=== PATIENT | male | born 1990 | race Caucasian/White ===

== ENCOUNTER 2022-03-14 14:30 | Inpatient (IN) ==
[2022-03-14] MEDS: DilTIAZem 50 MG/50 ML IV.SOLN IVC SCH ×2 (17:02→22:21)
[2022-03-14] MEDS ORDERED: Ondansetron 4 MG/2 ML VIAL IVP PRN (17:29)
[2022-03-14] MEDS ORDERED: Acetaminophen 325 MG TABLET PO PRN (17:29)
[2022-03-14] MEDS ORDERED: Naloxone 0.4 MG/ML INJ IVP PRN (17:29)
[2022-03-14] MEDS ORDERED: MOM Conc 10 ML UD.LIQ PO PRN (17:29)
[2022-03-14] MEDS ORDERED: Mag Hydrox/Al Hydrox/Simeth 30 ML UDC PO PRN (17:29)
[2022-03-14] MEDS ORDERED: *HR* Heparin 5,000 UNIT/ML VIAL IVP ONE (17:31)
[2022-03-14] MEDS ORDERED: *HR* Heparin 5,000 UNIT/ML VIAL IVP PRN (17:31)
[2022-03-14] MEDS: Heparin 25,000UNIT/250ML 1/2NS 25,000 UNIT/250 ML IV.SOLN IVC SCH (18:47)
[2022-03-14 19:06] LABS: Calcium 8.8 mg/dL (8.6-10.3); Magnesium 1.9 mg/dL (1.6-2.6); Troponin I 0.04 ng/mL (< 0.04)
[2022-03-14 19:11] LABS: Thyroid Stimulating Hormone 1.608 mcIU/mL (0.340-5.600)
[2022-03-15] MEDS: DilTIAZem 50 MG/50 ML IV.SOLN IVC SCH ×5 (03:34→21:38)
[2022-03-15] MEDS: Heparin 25,000UNIT/250ML 1/2NS 25,000 UNIT/250 ML IV.SOLN IVC SCH ×3 (04:22→23:19)
[2022-03-15 05:28] LABS: Hematocrit 38.4 % (37.5-50.1); Hemoglobin 12.6 g/dL (12.9-16.9); Mean Corpuscular HGB Conc 32.8 g/dL (31.6-35.5); Mean Corpuscular Hemoglobin 29.3 pg (28.0-33.3); Mean Corpuscular Volume 89.3 fL (83.0-100.0); Platelet Count 269 K/mcL (140-400); Red Cell Distribution Width 13.2 % (11.5-14.5); White Blood Count 10.5 K/mcL (4.3-11.1)
[2022-03-15 05:41] LABS: INR 1.2; Prothrombin Time 13.9 Seconds (9.4-12.1)
[2022-03-15] MEDS ORDERED: *HR* Metoprolol 5 MG/5 ML VIAL IVP ONE (06:11)
[2022-03-15 06:57] LABS: BUN/Creatinine Ratio 16 (6-26); Blood Urea Nitrogen 15 mg/dL (6-20); Calcium 8.6 mg/dL (8.6-10.3); Carbon Dioxide 25 mEq/L (23-29); Chloride 102 mEq/L (98-107); Glucose 119 mg/dL (70-105); Magnesium 1.8 mg/dL (1.6-2.6); Osmolality,Calculated 282 (280-300); Sodium 135 mEq/L (136-145)
[2022-03-15] MEDS ORDERED: ARIPiprazole 5 MG TABLET PO SCH (09:00)
[2022-03-15] MEDS ORDERED: Metoprolol XL (24 HR) Succ 50 MG TAB.ER.24H PO SCH (09:00)
[2022-03-15] MEDS: methocarbamoL 500 MG TABLET PO SCH ×3 (09:22→20:09)
[2022-03-15] MEDS: Loratadine 10 MG TABLET PO SCH (09:22)
[2022-03-15] MEDS: lisinopriL 10 MG TABLET PO SCH (09:23)
[2022-03-15] MEDS: Furosemide 20 MG TABLET PO SCH (09:23)
[2022-03-15 10:34] LABS: Estimated Average Glucose 140 mg/dl; Hemoglobin A1C 6.5 %
[2022-03-15] MEDS ORDERED: 0.9 % Sodium Chloride 2,000 ML ONE (15:18)
[2022-03-15] MEDS ORDERED: Iopamidol - 370 200 ML INFUS..BTL ONE (15:18)
[2022-03-15] MEDS ORDERED: *HR* Midazolam HCl 2 MG/2 ML VIAL ONE (15:18)
[2022-03-15] MEDS ORDERED: *HR* FentaNYL (PF) 100 MCG/2 ML VIAL ONE (15:18)
[2022-03-15] MEDS ORDERED: *HR* Heparin 10,000 UNIT/10 ML VIAL ONE (15:18)
[2022-03-15] MEDS ORDERED: Heparin 1,000 UNITS/500 mL 500 ML ONE (15:18)
[2022-03-15] MEDS ORDERED: Nitroglycerin 1,000 MCG/5 ML VIAL IV ONE (15:19)
[2022-03-15] MEDS: *HR* Heparin 5,000 UNIT/ML VIAL IVP PRN (20:08)
[2022-03-15] MEDS: Furosemide 40 MG/4 ML VIAL IVP SCH (20:08)
[2022-03-15] MEDS: Metoprolol XL (24 HR) Succ 50 MG TAB.ER.24H PO SCH (20:09)
[2022-03-16] MEDS: DilTIAZem 50 MG/50 ML IV.SOLN IVC SCH (03:58)
[2022-03-16] MEDS ORDERED: Amiodarone Premix 360 MG/200 ML BAG IVC ONE (09:09)
[2022-03-16] MEDS ORDERED: Amiodarone Premix 150 MG/100 ML BAG IVPB ONE (09:11)
[2022-03-16] MEDS: Heparin 25,000UNIT/250ML 1/2NS 25,000 UNIT/250 ML IV.SOLN IVC SCH ×2 (09:13→14:59)
[2022-03-16] MEDS: lisinopriL 10 MG TABLET PO SCH (09:14)
[2022-03-16] MEDS: Metoprolol XL (24 HR) Succ 50 MG TAB.ER.24H PO SCH ×2 (09:15→19:50)
[2022-03-16] MEDS: Loratadine 10 MG TABLET PO SCH (09:15)
[2022-03-16] MEDS: methocarbamoL 500 MG TABLET PO SCH ×3 (09:15→19:50)
[2022-03-16] MEDS: Furosemide 40 MG/4 ML VIAL IVP SCH ×2 (09:16→19:49)
[2022-03-16] MEDS: Furosemide 20 MG TABLET PO SCH (09:17)
[2022-03-16 10:22] LABS: Basophils # 0.1 K/mcL (0.0-0.2); Basophils % 0.5 %; Eosinophils # 0.5 K/mcL (0.0-0.6); Eosinophils % 5.5 %; Hematocrit 41.4 % (37.5-50.1); Hemoglobin 13.8 g/dL (12.9-16.9); Immature Granulocytes % 0.9 % (0-4); Lymphocytes # 2.3 K/mcL (0.6-4.6); Lymphocytes % 24.4 %; Mean Corpuscular HGB Conc 33.3 g/dL (31.6-35.5); Mean Corpuscular Hemoglobin 29.5 pg (28.0-33.3); Mean Corpuscular Volume 88.5 fL (83.0-100.0); Mean Platelet Volume 9.5 fL (9.4-12.4); Monocytes # 0.7 K/mcL (0.0-1.3); Monocytes % 7.6 %; Neutrophils # 5.6 K/mcL (1.6-8.9); Platelet Count 309 K/mcL (140-400); Red Blood Count 4.68 M/mcL (4.19-5.50); Red Cell Distribution Width 13.2 % (11.5-14.5); Segmented Neutrophils % 61.1 %; White Blood Count 9.2 K/mcL (4.3-11.1)
[2022-03-16 10:43] LABS: BUN/Creatinine Ratio 14 (6-26); Blood Urea Nitrogen 14 mg/dL (6-20); Calcium 9.1 mg/dL (8.6-10.3); Carbon Dioxide 25 mEq/L (23-29); Chloride 100 mEq/L (98-107); Glucose 209 mg/dL (70-105); Osmolality,Calculated 285 (280-300); Potassium 3.8 mEq/L (3.5-5.1); Sodium 134 mEq/L (136-145)
[2022-03-16] MEDS: *HR* Heparin 5,000 UNIT/ML VIAL IVP PRN (10:44)
[2022-03-16] MEDS ORDERED: DilTIAZem CD (24hr) 120 MG CAP.ER.24H PO SCH (11:30)
[2022-03-16] MEDS: Amiodarone Premix 360 MG/200 ML BAG IVC SCH (15:25)
[2022-03-16] MEDS: *HR* Rivaroxaban 10 MG TABLET PO SCH (16:58)
[2022-03-16] MEDS ORDERED: polyethylene glycoL 3350 17 GM POWD.PACK PO PRN (18:58)
[2022-03-17] MEDS: Amiodarone Premix 360 MG/200 ML BAG IVC SCH (04:24)
[2022-03-17] MEDS: Loratadine 10 MG TABLET PO SCH (09:28)
[2022-03-17] MEDS: Metoprolol XL (24 HR) Succ 50 MG TAB.ER.24H PO SCH ×2 (09:28→20:02)
[2022-03-17] MEDS: methocarbamoL 500 MG TABLET PO SCH ×3 (09:28→20:02)
[2022-03-17] MEDS: Furosemide 40 MG/4 ML VIAL IVP SCH ×2 (09:28→20:02)
[2022-03-17] MEDS: lisinopriL 10 MG TABLET PO SCH (09:28)
[2022-03-17 09:37] LABS: Hematocrit 41.2 % (37.5-50.1); Hemoglobin 13.6 g/dL (12.9-16.9); Mean Corpuscular Hemoglobin 29.2 pg (28.0-33.3); Mean Corpuscular Volume 88.4 fL (83.0-100.0); Mean Platelet Volume 9.5 fL (9.4-12.4); Platelet Count 334 K/mcL (140-400); Red Blood Count 4.66 M/mcL (4.19-5.50); Red Cell Distribution Width 13.2 % (11.5-14.5); White Blood Count 9.8 K/mcL (4.3-11.1)
[2022-03-17 09:57] LABS: BUN/Creatinine Ratio 15 (6-26); Blood Urea Nitrogen 15 mg/dL (6-20); Calcium 9.3 mg/dL (8.6-10.3); Carbon Dioxide 28 mEq/L (23-29); Chloride 100 mEq/L (98-107); Glucose 180 mg/dL (70-105); Osmolality,Calculated 285 (280-300); Sodium 135 mEq/L (136-145)
[2022-03-17] MEDS ORDERED: Metoprolol XL (24 HR) Succ 25 MG TAB.ER.24H PO ONE (11:51)
[2022-03-17] MEDS: *HR* Metoprolol 5 MG/5 ML VIAL IVP PRN ×2 (12:47→18:39)
[2022-03-17] MEDS: *HR* Digoxin 0.5 MG/2 ML AMPUL IVP SCH ×2 (12:47→18:17)
[2022-03-17] MEDS: *HR* Rivaroxaban 10 MG TABLET PO SCH (15:55)
[2022-03-18 04:53] LABS: Hemoglobin 14.2 g/dL (12.9-16.9); Mean Corpuscular HGB Conc 33.8 g/dL (31.6-35.5); Mean Corpuscular Volume 88.6 fL (83.0-100.0); Mean Platelet Volume 9.4 fL (9.4-12.4); Platelet Count 340 K/mcL (140-400); Red Blood Count 4.74 M/mcL (4.19-5.50); Red Cell Distribution Width 13.2 % (11.5-14.5); White Blood Count 12.1 K/mcL (4.3-11.1)
[2022-03-18 05:06] LABS: BUN/Creatinine Ratio 18 (6-26); Blood Urea Nitrogen 17 mg/dL (6-20); Calcium 9.2 mg/dL (8.6-10.3); Carbon Dioxide 29 mEq/L (23-29); Chloride 99 mEq/L (98-107); Glucose 129 mg/dL (70-105); Osmolality,Calculated 281 (280-300); Potassium 4.2 mEq/L (3.5-5.1); Sodium 134 mEq/L (136-145)
[2022-03-18] MEDS: Furosemide 40 MG/4 ML VIAL IVP SCH ×2 (07:45→19:58)
[2022-03-18] MEDS: Metoprolol XL (24 HR) Succ 50 MG TAB.ER.24H PO SCH ×2 (07:45→19:57)
[2022-03-18] MEDS: methocarbamoL 500 MG TABLET PO SCH ×3 (07:46→19:57)
[2022-03-18] MEDS: Loratadine 10 MG TABLET PO SCH (07:46)
[2022-03-18] MEDS: lisinopriL 10 MG TABLET PO SCH (07:46)
[2022-03-18] MEDS ORDERED: *HR* Digoxin 0.125 MG TABLET PO SCH (09:00)
[2022-03-18] MEDS ORDERED: *HR* Digoxin 0.125 MG TABLET PO ONE (10:20)
[2022-03-18] MEDS: *HR* Metoprolol 5 MG/5 ML VIAL IVP PRN (15:03)
[2022-03-18] MEDS: *HR* Rivaroxaban 10 MG TABLET PO SCH (18:14)
[2022-03-19 09:57] LABS: Hematocrit 43.6 % (37.5-50.1); Hemoglobin 14.8 g/dL (12.9-16.9); Mean Corpuscular HGB Conc 33.9 g/dL (31.6-35.5); Mean Corpuscular Hemoglobin 29.7 pg (28.0-33.3); Mean Corpuscular Volume 87.6 fL (83.0-100.0); Mean Platelet Volume 9.3 fL (9.4-12.4); Platelet Count 353 K/mcL (140-400); Red Blood Count 4.98 M/mcL (4.19-5.50); White Blood Count 11.1 K/mcL (4.3-11.1)
[2022-03-19 10:17] LABS: BUN/Creatinine Ratio 25 (6-26); Blood Urea Nitrogen 23 mg/dL (6-20); Calcium 9.6 mg/dL (8.6-10.3); Carbon Dioxide 27 mEq/L (23-29); Chloride 98 mEq/L (98-107); Glucose 174 mg/dL (70-105); Osmolality,Calculated 282 (280-300); Potassium 4.2 mEq/L (3.5-5.1); Sodium 132 mEq/L (136-145)
[2022-03-19] MEDS: *HR* Digoxin 0.125 MG TABLET PO SCH (10:41)
[2022-03-19] MEDS: lisinopriL 10 MG TABLET PO SCH (10:41)
[2022-03-19] MEDS: Loratadine 10 MG TABLET PO SCH (10:41)
[2022-03-19] MEDS: methocarbamoL 500 MG TABLET PO SCH ×3 (10:41→20:52)
[2022-03-19] MEDS: Metoprolol XL (24 HR) Succ 50 MG TAB.ER.24H PO SCH ×2 (10:42→20:52)
[2022-03-19] MEDS: Furosemide 40 MG/4 ML VIAL IVP SCH ×2 (10:43→20:51)
[2022-03-19] MEDS: *HR* Metoprolol 5 MG/5 ML VIAL IVP PRN ×3 (11:27→20:52)
[2022-03-19] MEDS ORDERED: Metoprolol XL (24 HR) Succ 25 MG TAB.ER.24H PO ONE (14:13)
[2022-03-19] MEDS: *HR* Rivaroxaban 10 MG TABLET PO SCH (15:39)
[2022-03-19] MEDS ORDERED: Amiodarone Premix 150 MG/100 ML BAG IVPB ONE (21:08)
[2022-03-19] MEDS ORDERED: Amiodarone Premix 360 MG/200 ML BAG IVC ONE (22:00)
[2022-03-19] MEDS: IVABRADINE HCL 7.5 MG TABLET PO SCH (22:17)
[2022-03-19] MEDS: Amiodarone Premix 360 MG/200 ML BAG IVC SCH (22:41)
[2022-03-20] MEDS: Amiodarone Premix 360 MG/200 ML BAG IVC SCH ×4 (04:29→19:57)
[2022-03-20 05:22] LABS: Hematocrit 42.2 % (37.5-50.1); Hemoglobin 14.1 g/dL (12.9-16.9); Mean Corpuscular HGB Conc 33.4 g/dL (31.6-35.5); Mean Corpuscular Hemoglobin 29.6 pg (28.0-33.3); Mean Corpuscular Volume 88.5 fL (83.0-100.0); Mean Platelet Volume 9.4 fL (9.4-12.4); Platelet Count 352 K/mcL (140-400); Red Blood Count 4.77 M/mcL (4.19-5.50); White Blood Count 12.6 K/mcL (4.3-11.1)
[2022-03-20 05:42] LABS: BUN/Creatinine Ratio 25 (6-26); Blood Urea Nitrogen 26 mg/dL (6-20); Calcium 9.3 mg/dL (8.6-10.3); Carbon Dioxide 31 mEq/L (23-29); Chloride 96 mEq/L (98-107); Glucose 125 mg/dL (70-105); Osmolality,Calculated 286 (280-300); Potassium 4.7 mEq/L (3.5-5.1); Sodium 135 mEq/L (136-145)
[2022-03-20] MEDS: lisinopriL 10 MG TABLET PO SCH (08:58)
[2022-03-20] MEDS: Furosemide 40 MG/4 ML VIAL IVP SCH ×2 (08:58→19:57)
[2022-03-20] MEDS: Metoprolol XL (24 HR) Succ 50 MG TAB.ER.24H PO SCH ×2 (08:58→19:57)
[2022-03-20] MEDS: *HR* Digoxin 0.125 MG TABLET PO SCH (08:59)
[2022-03-20] MEDS: methocarbamoL 500 MG TABLET PO SCH ×3 (08:59→19:57)
[2022-03-20] MEDS: Loratadine 10 MG TABLET PO SCH (08:59)
[2022-03-20] MEDS: IVABRADINE HCL 7.5 MG TABLET PO SCH (10:10)
[2022-03-20] MEDS: *HR* Rivaroxaban 10 MG TABLET PO SCH (16:12)
[2022-03-20] MEDS: *HR* Amiodarone 200 MG TABLET PO SCH (19:57)
[2022-03-21] MEDS: Amiodarone Premix 360 MG/200 ML BAG IVC SCH (05:06)
[2022-03-21 05:54] LABS: Hematocrit 40.4 % (37.5-50.1); Hemoglobin 13.8 g/dL (12.9-16.9); Mean Corpuscular HGB Conc 34.2 g/dL (31.6-35.5); Mean Corpuscular Hemoglobin 29.7 pg (28.0-33.3); Mean Corpuscular Volume 87.1 fL (83.0-100.0); Mean Platelet Volume 9.2 fL (9.4-12.4); Platelet Count 321 K/mcL (140-400); Red Blood Count 4.64 M/mcL (4.19-5.50); Red Cell Distribution Width 12.9 % (11.5-14.5); White Blood Count 11.6 K/mcL (4.3-11.1)
[2022-03-21 06:22] LABS: BUN/Creatinine Ratio 27 (6-26); Blood Urea Nitrogen 30 mg/dL (6-20); Calcium 9.1 mg/dL (8.6-10.3); Carbon Dioxide 31 mEq/L (23-29); Chloride 98 mEq/L (98-107); Digoxin 1.1 ng/mL (0.8-2.0); Glucose 119 mg/dL (70-105); Magnesium 2.1 mg/dL (1.6-2.6); Osmolality,Calculated 289 (280-300); Phosphorous 4.4 mg/dL (2.7-4.5); Potassium 4.4 mEq/L (3.5-5.1); Sodium 136 mEq/L (136-145)
[2022-03-21] MEDS: Metoprolol XL (24 HR) Succ 50 MG TAB.ER.24H PO SCH ×2 (07:29→19:35)
[2022-03-21] MEDS: *HR* Digoxin 0.125 MG TABLET PO SCH (07:29)
[2022-03-21] MEDS: lisinopriL 10 MG TABLET PO SCH (07:30)
[2022-03-21] MEDS: methocarbamoL 500 MG TABLET PO SCH ×3 (07:30→19:35)
[2022-03-21] MEDS: Loratadine 10 MG TABLET PO SCH (07:30)
[2022-03-21] MEDS: *HR* Amiodarone 200 MG TABLET PO SCH ×2 (07:30→19:35)
[2022-03-21] MEDS: Furosemide 40 MG/4 ML VIAL IVP SCH (07:33)
[2022-03-21] MEDS: *HR* Metoprolol 5 MG/5 ML VIAL IVP PRN (11:03)
[2022-03-21] MEDS ORDERED: 0.9 % Sodium Chloride 500 ML IVC ONE ×2 (13:49→14:33)
[2022-03-21] MEDS: *HR* Rivaroxaban 10 MG TABLET PO SCH (17:03)
[2022-03-22] MEDS ORDERED: *HR* LORazepam 2 MG/ML VIAL IVP PRN (02:38)
[2022-03-22 06:25] LABS: Hematocrit 39.3 % (37.5-50.1); Hemoglobin 13.1 g/dL (12.9-16.9); Mean Corpuscular HGB Conc 33.3 g/dL (31.6-35.5); Mean Corpuscular Hemoglobin 29.3 pg (28.0-33.3); Mean Corpuscular Volume 87.9 fL (83.0-100.0); Mean Platelet Volume 9.4 fL (9.4-12.4); Platelet Count 306 K/mcL (140-400); Red Blood Count 4.47 M/mcL (4.19-5.50); Red Cell Distribution Width 12.9 % (11.5-14.5); White Blood Count 9.6 K/mcL (4.3-11.1)
[2022-03-22] MEDS: Metoprolol XL (24 HR) Succ 50 MG TAB.ER.24H PO SCH ×2 (07:33→21:27)
[2022-03-22] MEDS: Loratadine 10 MG TABLET PO SCH (07:34)
[2022-03-22] MEDS: *HR* Digoxin 0.125 MG TABLET PO SCH (07:34)
[2022-03-22] MEDS: methocarbamoL 500 MG TABLET PO SCH ×3 (07:34→21:27)
[2022-03-22] MEDS: *HR* Amiodarone 200 MG TABLET PO SCH ×2 (07:34→21:27)
[2022-03-22] MEDS: lisinopriL 10 MG TABLET PO SCH (07:54)
[2022-03-22] MEDS: Furosemide 40 MG TABLET PO SCH (08:35)
[2022-03-22 08:52] LABS: BUN/Creatinine Ratio 26 (6-26); Blood Urea Nitrogen 28 mg/dL (6-20); Carbon Dioxide 30 mEq/L (23-29); Chloride 98 mEq/L (98-107); Glucose 123 mg/dL (70-105); Osmolality,Calculated 287 (280-300); Potassium 4.2 mEq/L (3.5-5.1); Sodium 135 mEq/L (136-145)
[2022-03-22 10:45] LABS: Magnesium 2.1 mg/dL (1.6-2.6); Phosphorous 3.8 mg/dL (2.7-4.5)
[2022-03-22] MEDS: *HR* Rivaroxaban 10 MG TABLET PO SCH (16:50)
[2022-03-22 17:16] LABS: Digoxin 0.8 ng/mL (0.8-2.0)
[2022-03-23 03:33] LABS: Hematocrit 38.5 % (37.5-50.1); Hemoglobin 12.9 g/dL (12.9-16.9); Mean Corpuscular HGB Conc 33.5 g/dL (31.6-35.5); Mean Corpuscular Hemoglobin 29.4 pg (28.0-33.3); Mean Corpuscular Volume 87.7 fL (83.0-100.0); Mean Platelet Volume 9.6 fL (9.4-12.4); Platelet Count 304 K/mcL (140-400); Red Blood Count 4.39 M/mcL (4.19-5.50); Red Cell Distribution Width 12.8 % (11.5-14.5); White Blood Count 10.3 K/mcL (4.3-11.1)
[2022-03-23 03:39] LABS: BUN/Creatinine Ratio 23 (6-26); Blood Urea Nitrogen 23 mg/dL (6-20); Calcium 8.7 mg/dL (8.6-10.3); Carbon Dioxide 31 mEq/L (23-29); Chloride 102 mEq/L (98-107); Glucose 103 mg/dL (70-105); Osmolality,Calculated 288 (280-300); Potassium 4.2 mEq/L (3.5-5.1); Sodium 137 mEq/L (136-145)
[2022-03-23] MEDS: Metoprolol XL (24 HR) Succ 50 MG TAB.ER.24H PO SCH ×2 (08:20→20:18)
[2022-03-23] MEDS: lisinopriL 10 MG TABLET PO SCH (08:25)
[2022-03-23] MEDS: Loratadine 10 MG TABLET PO SCH (08:25)
[2022-03-23] MEDS: *HR* Amiodarone 200 MG TABLET PO SCH ×2 (08:25→20:19)
[2022-03-23] MEDS: Furosemide 40 MG TABLET PO SCH (08:25)
[2022-03-23] MEDS: methocarbamoL 500 MG TABLET PO SCH ×3 (08:26→20:18)
[2022-03-23] MEDS: *HR* Digoxin 0.125 MG TABLET PO SCH (08:26)
[2022-03-23] MEDS: *HR* Metoprolol 5 MG/5 ML VIAL IVP PRN ×2 (11:01→17:13)
[2022-03-23] MEDS: *HR* Rivaroxaban 10 MG TABLET PO SCH (17:11)
[2022-03-23 22:49] VITALS: TEMP 97.9
[2022-03-24 05:18] LABS: Hematocrit 37.3 % (37.5-50.1); Hemoglobin 12.4 g/dL (12.9-16.9); Mean Corpuscular HGB Conc 33.2 g/dL (31.6-35.5); Mean Corpuscular Hemoglobin 29.4 pg (28.0-33.3); Mean Corpuscular Volume 88.4 fL (83.0-100.0); Mean Platelet Volume 9.6 fL (9.4-12.4); Platelet Count 270 K/mcL (140-400); Red Blood Count 4.22 M/mcL (4.19-5.50); Red Cell Distribution Width 12.8 % (11.5-14.5); White Blood Count 9.6 K/mcL (4.3-11.1)
[2022-03-24 05:36] LABS: BUN/Creatinine Ratio 23 (6-26); Blood Urea Nitrogen 23 mg/dL (6-20); Calcium 9.1 mg/dL (8.6-10.3); Carbon Dioxide 27 mEq/L (23-29); Chloride 102 mEq/L (98-107); Glucose 100 mg/dL (70-105); Osmolality,Calculated 286 (280-300); Potassium 4.1 mEq/L (3.5-5.1); Sodium 136 mEq/L (136-145)
[2022-03-24] MEDS: Furosemide 40 MG TABLET PO SCH (10:12)
[2022-03-24] MEDS: Metoprolol XL (24 HR) Succ 50 MG TAB.ER.24H PO SCH (10:12)
[2022-03-24] MEDS: *HR* Digoxin 0.125 MG TABLET PO SCH (10:12)
[2022-03-24] MEDS: methocarbamoL 500 MG TABLET PO SCH (10:12)
[2022-03-24] MEDS: *HR* Amiodarone 200 MG TABLET PO SCH (10:12)
[2022-03-24] MEDS: lisinopriL 10 MG TABLET PO SCH (10:12)
[2022-03-24] MEDS: Loratadine 10 MG TABLET PO SCH (10:12)
[2022-03-24 10:14] VITALS: BP 111/74; PULSE 110; O2SAT 96
== END 2022-03-24 12:30 | disposition home or self-care (01) | DRG 281 ==
LOC: 2NENU → 2NNU 03-19 22:49 → 3NENU 03-22 19:42
PROVIDERS: ADMIT Internal Medicine; ATTEND Internal Medicine

== ENCOUNTER 2022-04-09 11:35 | Observation (INO) ==
[2022-04-09 12:45] LABS: Basophils % 0.3 %; Eosinophils # 0.1 K/mcL (0.0-0.6); Eosinophils % 1.2 %; Hematocrit 41.4 % (37.5-50.1); Hemoglobin 13.9 g/dL (12.9-16.9); Immature Granulocytes % 0.4 % (0-4); Lymphocytes # 1.1 K/mcL (0.6-4.6); Mean Corpuscular HGB Conc 33.6 g/dL (31.6-35.5); Mean Corpuscular Hemoglobin 29.8 pg (28.0-33.3); Mean Corpuscular Volume 88.7 fL (83.0-100.0); Mean Platelet Volume 9.4 fL (9.4-12.4); Neutrophils # 8.8 K/mcL (1.6-8.9); Platelet Count 287 K/mcL (140-400); Red Blood Count 4.67 M/mcL (4.19-5.50); Red Cell Distribution Width 13.7 % (11.5-14.5); Segmented Neutrophils % 79.1 %; White Blood Count 11.1 K/mcL (4.3-11.1)
[2022-04-09 12:53] LABS: INR 1.5; Prothrombin Time 16.8 Seconds (9.4-12.1)
[2022-04-09 13:12] LABS: Activated Partial Thrombo Time 43.2 Seconds (26.0-36.0); D-Dimer < 215 ng/mLFEU (0-500)
[2022-04-09 13:41] LABS: Calcium 9.8 mg/dL (8.6-10.3); Potassium 4.2 mEq/L (3.5-5.1); Troponin I 0.03 ng/mL (< 0.04)
[2022-04-09] MEDS ORDERED: Naloxone 0.4 MG/ML INJ IVP PRN (14:39)
[2022-04-09] MEDS ORDERED: Ondansetron ODT 4 MG TAB.RAPDIS SL PRN (14:39)
[2022-04-09] MEDS ORDERED: Mag Hydrox/Al Hydrox/Simeth 30 ML UDC PO PRN (14:39)
[2022-04-09] MEDS ORDERED: Melatonin 3 MG TABLET PO PRN (14:39)
[2022-04-09] MEDS ORDERED: MOM Conc 10 ML UD.LIQ PO PRN (14:39)
[2022-04-09] MEDS ORDERED: *HR* Heparin 5,000 UNIT/ML VIAL IVP PRN ×2 (14:41)
[2022-04-09] MEDS ORDERED: *HR* Heparin 5,000 UNIT/ML VIAL IVP ONE (14:41)
[2022-04-09] MEDS: DilTIAZem 50 MG/50 ML IV.SOLN IVC SCH ×2 (14:45→20:09)
[2022-04-09] MEDS ORDERED: Heparin 25,000UNIT/250ML 1/2NS 25,000 UNIT/250 ML IV.SOLN IVC SCH (14:45)
[2022-04-09] MEDS: *HR* Amiodarone 200 MG TABLET PO SCH ×2 (15:14→20:04)
[2022-04-09] MEDS: Metoprolol XL (24 HR) Succ 50 MG TAB.ER.24H PO SCH ×2 (15:14→20:04)
[2022-04-09] MEDS: Heparin 25,000UNIT/250ML 1/2NS 25,000 UNIT/250 ML IV.SOLN IVC SCH (15:43)
[2022-04-09] MEDS: *HR* Digoxin 0.125 MG TABLET PO SCH (16:55)
[2022-04-09] MEDS ORDERED: Ibuprofen 600 MG TABLET PO PRN (17:00)
[2022-04-09] MEDS ORDERED: Acetaminophen 325 MG TABLET PO PRN (17:00)
[2022-04-09 17:31] LABS: INR 1.7; Prothrombin Time 18.8 Seconds (9.4-12.1)
[2022-04-09 18:06] LABS: Activated Partial Thrombo Time 159.2 Seconds (26.0-36.0)
[2022-04-09 18:08] LABS: Heparin anti-factor XA UFH 1.23 IU/mL (0.30-0.70)
[2022-04-09 19:57] LABS: Hematocrit 38.5 % (37.5-50.1); Hemoglobin 12.8 g/dL (12.9-16.9); Mean Corpuscular HGB Conc 33.2 g/dL (31.6-35.5); Mean Corpuscular Hemoglobin 29.2 pg (28.0-33.3); Mean Corpuscular Volume 87.7 fL (83.0-100.0); Mean Platelet Volume 9.5 fL (9.4-12.4); Platelet Count 242 K/mcL (140-400); Red Blood Count 4.39 M/mcL (4.19-5.50); Red Cell Distribution Width 13.5 % (11.5-14.5); White Blood Count 9.2 K/mcL (4.3-11.1)
[2022-04-10] MEDS: Heparin 25,000UNIT/250ML 1/2NS 25,000 UNIT/250 ML IV.SOLN IVC SCH (02:39)
[2022-04-10 03:11] LABS: Basophils % 0.5 %; Eosinophils # 0.1 K/mcL (0.0-0.6); Hematocrit 38.8 % (37.5-50.1); Hemoglobin 12.6 g/dL (12.9-16.9); Immature Granulocytes % 0.3 % (0-4); Lymphocytes # 2.4 K/mcL (0.6-4.6); Mean Corpuscular HGB Conc 32.5 g/dL (31.6-35.5); Mean Corpuscular Volume 89.4 fL (83.0-100.0); Mean Platelet Volume 9.7 fL (9.4-12.4); Monocytes # 1.5 K/mcL (0.0-1.3); Neutrophils # 3.9 K/mcL (1.6-8.9); Platelet Count 225 K/mcL (140-400); Red Blood Count 4.34 M/mcL (4.19-5.50); Red Cell Distribution Width 13.6 % (11.5-14.5); Segmented Neutrophils % 49.2 %; White Blood Count 7.9 K/mcL (4.3-11.1)
[2022-04-10 03:32] LABS: Alanine Aminotransferase 36 Units/L (7-52); Albumin 4.1 g/dL (3.5-5.7); Albumin/Globulin Ratio 1.2 (1.1-2.2); Alkaline Phosphatase 112 Units/L (34-104); Aspartate Amino Transferase 25 Units/L (13-39); BUN/Creatinine Ratio 14 (6-26); Bilirubin,Direct 0.4 mg/dL (0.0-0.2); Bilirubin,Indirect 0.9 mg/dL (0.0-1.0); Bilirubin,Total 1.3 mg/dL (0.3-1.0); Blood Urea Nitrogen 15 mg/dL (6-20); Calcium 9.2 mg/dL (8.6-10.3); Carbon Dioxide 26 mEq/L (23-29); Chloride 100 mEq/L (98-107); Globulin 3.3 g/dL (2.4-3.5); Glucose 92 mg/dL (70-105); Osmolality,Calculated 282 (280-300); Potassium 3.3 mEq/L (3.5-5.1); Sodium 136 mEq/L (136-145); Total Protein 7.4 g/dL (6.4-8.9)
[2022-04-10 09:05] LABS: Thyroid Stimulating Hormone 2.295 mcIU/mL (0.340-5.600)
[2022-04-10] MEDS: *HR* Digoxin 0.125 MG TABLET PO SCH (09:29)
[2022-04-10] MEDS: *HR* Amiodarone 200 MG TABLET PO SCH (09:30)
[2022-04-10] MEDS: Metoprolol XL (24 HR) Succ 50 MG TAB.ER.24H PO SCH (09:30)
[2022-04-10 09:33] VITALS: BP 117/64; PULSE 87; TEMP 97.6; O2SAT 98
== END 2022-04-10 16:14 | disposition home or self-care (01) ==
LOC: 3NENU 11:35 → EMEROOARM 11:35 → SUATTDRO 16:31 → 3NENU 17:26
PROVIDERS: ADMIT Student in an Organized Health Care Education/Training Program; ATTEND Registered Nurse